=== PATIENT | female | born 1990 | race American Indian/Alaskan Native ===

== ENCOUNTER 2021-05-29 14:32 | Emergency (ER) | payer OTHER ==
[2021-05-29 15:35] LABS: Basophils % (Auto) 0.2 % (0.0-1.8); Eosinophils % (Auto) 0.3 % (0.0-4.3); Lymphocytes # (Auto) 1.2 K/mm3 (1.2-5.4); Lymphocytes % (Auto) 8.9 % (13.4-35.0); Mean Corpuscular HGB Conc 31 % (30-34); Monocytes # (Auto) 0.7 K/mm3 (0.0-0.8); Monocytes % (Auto) 5.3 % (0.0-7.3); Platelet Count 320 K/mm3 (140-440); Red Blood Count 6.25 M/mm3 (3.65-5.03); Red Cell Distribution Width 16.2 % (13.2-15.2)
[2021-05-29 15:36] LABS: Hemoglobin 13.2 gm/dl (10.1-14.3)
[2021-05-29 15:37] LABS: Hematocrit 43.1 % (30.3-42.9); Mean Corpuscular Volume 69 fl (79-97)
[2021-05-29] MEDS ORDERED: SODIUM CHLORIDE 0.9% 1000 ML 1,000 ML IV ONE (15:44)
[2021-05-29 15:57] LABS: Blood Urea Nitrogen 7 mg/dL (7-17); Calcium 9.1 mg/dL (8.4-10.2); Hemolysis Index 6
--- NOTE | 2021-05-29 16:02 | Emergency Department Report ---
ED Palpitations HPI - General Chief Complaint: Arrhythmia/Palpitations Stated Complaint: SOB/HEART PALIPITATIONS Time Seen by Provider: 05/29/21 14:47 Source: EMS Mode of arrival: Stretcher Limitations: No Limitations - History of Present Illness Initial Comments: 30-year-old female, no past medical history, presents to ED for palpitations. Patient states she was cleaning up and just started sweeping, when she began to feel her heart racing. She reports associated shortness of breath and chest pain. States he felt like she was going to pass out. EMS was called. EMS reports heart rate was in the 180s and states patient was in SVT. Vagal maneu jessica was attempted, SVT converted, patient then went to sinus tach. Patient states she is feeling much better at this time. She denies any fever, cough, recent illness. MD Complaint: "heart racing" -: This afternoon Context: occured during rest Arrythmia History: other (None) Associated Symptoms: chest pain, shortness of breath, near-syncope Treatments Prior to Arrival: vagal maneuvers - Related Data Allergies Allergy/AdvReac Type Severity Reaction Status Date / Time No Known Allergies Allergy Unverified 05/29/21 14:39 ED Review of Systems ROS: Stated complaint: SOB/HEART PALIPITATIONS Other details as noted in HPI Comment: All other systems reviewed and negative Respiratory: shortness of breath Cardiovascular: chest pain, palpitations ED Past Medical Hx - Social History Smoking Status: Never Smoker Substance Use Type: None ED Physical Exam - General Limitations: No Limitations General appearance: alert, in no apparent distress - Head Head exam: Present: atraumatic, normocephalic - Eye Eye exam: Present: normal appearance, EOMI - ENT ENT exam: Present: mucous membranes moist - Neck Neck exam: Present: normal inspection - Respiratory Respiratory exam: Present: normal lung sounds bilaterally. Absent: respiratory distress - Cardiovascular Cardiovascular Exam: Present: normal rhythm, tachycardia - GI/Abdominal GI/Abdominal exam: Present: soft. Absent: distended, tenderness - Extremities Exam Extremities exam: Present: normal inspection - Neurological Exam Neurological exam: Present: alert, oriented X3 - Psychiatric Psychiatric exam: Present: normal affect, normal mood - Skin Skin exam: Present: warm, dry, intact, normal color ED Course Vital Signs 05/29/21 05/29/21 05/29/21 14:36 14:58 17:08 Temperature 97.9 F Pulse Rate 120 H 102 H Respiratory 19 19 19 Rate Blood Pressure 171/71 Blood Pressure 130/71 [Right] O2 Sat by Pulse 99 100 Oximetry 05/29/21 17:20 Temperature Pulse Rate 100 H Respiratory 19 Rate Blood Pressure Blood Pressure 128/74 [Right] O2 Sat by Pulse 99 Oximetry ED Medical Decision Making - Lab Data Result diagrams: 05/29/21 15:08 05/29/21 15:08 - EKG Data -: EKG Interpreted by Me EKG shows normal: sinus rhythm, axis, intervals, QRS complexes Rate: tachycardia (rate 118) - EKG Data Interpretation: nonspecific ST-T wave wali - Radiology Data Radiology results: report reviewed, image reviewed - Medical Decision Making 30-year-old female presents to ED with palpitations. Per EMS, EKG showed SVT upon their arrival. Patient converted to sinus tach with vagal maneuver.. ED patient is feeling much better. Vital signs stable. EKG shows no ST changes. Labs are unremarkable. Chest x-ray is normal. Patient will be discharged at this time, advised to follow-up with cardiology on an outpatient basis. Return precautions given. - Differential Diagnosis SVT Critical care attestation.: If time is entered above; I have spent that time in minutes in the direct care of this critically ill patient, excluding procedure time. ED Disposition Clinical Impression: SVT (supraventricular tachycardia) Disposition: - TO HOME OR SELFCARE Is pt being admited?: No Condition: Stable Instructions: Supraventricular Tachycardia, Adult Referrals: PRIMARY CAREMD [Primary Care Provider] - 3-5 Days LANCE BONNER MD [Staff Physician] - 3-5 Days Time of Disposition: 17:13
[2021-05-29 16:05] LABS: BUN/Creatinine Ratio 10
--- NOTE | 2021-05-29 16:48 | XRay Report ---
CHEST 1 VIEW INDICATION: palpitations. COMPARISON: None FINDINGS: SUPPORT DEVICES: None. HEART: Within normal limits. LUNGS/PLEURA: No acute air space or interstitial disease. ADDITIONAL FINDINGS: None. IMPRESSION: 1. No acute findings. Signer Name: Tay Medina MD Signed: 05/29/2021 4:43 PM Workstation Name: [id number]
[2021-05-29 17:22] VITALS: BP 128/74
--- NOTE | 2021-05-30 17:58 | Electrocardiograph Report ---
[facility] Test Date: 2021-05-29 Test Time: 15:18:16 Pat Name: SERVANDO VALERIO Department: Room: Gender: F [employer]: [id number] : 1990 Requested By: BRET HUMPHRIES Order Number: [id number] Reading MD: George Arizmendi Measurements Intervals [place] Rate: 118 P: 43 IA: 152 QRS: 61 QRSD: 73 T: -21 QT: 315 QTc: 442 Interpretive Statements Sinus tachycardia Left atrial enlargement Nonspecific T abnormalities, inferior leads No previous ECG available for comparison Electronically Signed On 05-30-2021 17:58:12 EDT by George Arizmendi
== END 2021-05-29 17:21 | disposition home or self-care (01) ==
LOC: ED 14:32
DX: I47.1 Supraventricular tachycardia (principal)
CPT/HCPCS: 36415; 71045; 80048; 84484; 84703; 85025; 93005